=== PATIENT | female | born 1980 | race American Indian/Alaskan Native ===

== ENCOUNTER 2021-12-14 11:17 | Emergency (ER) | payer MEDICAID ==
[2021-12-14 11:57] VITALS: BP 109/74
[2021-12-14 13:02] LABS: Hematocrit 36.4 % (30.3-42.9); Hemoglobin 11.6 gm/dl (10.1-14.3); Mean Corpuscular HGB Conc 32 % (30-34); Mean Corpuscular Volume 77 fl (79-97); Platelet Count 207 K/mm3 (140-440); Red Blood Count 4.73 M/mm3 (3.65-5.03); Red Cell Distribution Width 18.9 % (13.2-15.2)
[2021-12-14 13:15] LABS: Alanine Aminotransferase 12 units/L (7-56); Albumin 4.1 g/dL (3.9-5); BUN/Creatinine Ratio 17; Blood Urea Nitrogen 10 mg/dL (7-17); Calcium 9.2 mg/dL (8.4-10.2); Hemolysis Index 3
[2021-12-14] MEDS ORDERED: MORPHINE 4 MG/1 ML INJ IM ONE (14:30)
[2021-12-14] MEDS ORDERED: ONDANSETRON 4 MG ODT TAB PO ONE (14:30)
--- NOTE | 2021-12-14 14:56 | Ultrasound Report ---
ULTRASOUND OBSTETRIC REASON FOR EXAM: preg, vag bleeding TECHNIQUE: Transabdominal and transvaginal ultrasound was performed to evaluate a first trimester pre gnancy. COMPARISON: None available. FINDINGS: The uterus is enlarged, measuring 15.3 x 8.6 x 5.4 cm. There is a large cystic structure, measuring 7 .2 cm. This is concerning for abnormal gestational sac, located within the lower uterine segment. No yolk sac or pole is identified. Neither ovary is visualized. No significant mass in either adnexa. No significant free fluid fluid id entified. IMPRESSION: Large irregular empty gestational sac without pole or yolk sac. Findings are consistent with pr egnancy failure. Signer Name: Jakob Silverman MD Signed: 12/14/2021 2:52 PM Workstation Name: [id number]
[2021-12-14 16:24] LABS: Color,Urine Amber (Yellow)
[2021-12-14 16:28] LABS: Bacteria,Urine 1+ /HPF (Negative); Mucus,Urine FEW /HPF
[2021-12-14 16:38] LABS: RBC,Urine > 182.0 /HPF (0.0-6.0)
[2021-12-14] MEDS ORDERED: oxyCODONE /ACETAMINOPHEN 5-325MG TAB PO ONE (16:53)
[2021-12-14] MEDS ORDERED: KETOROLAC 10 MG TAB PO ONE (16:53)
--- NOTE | 2021-12-14 17:28 | Emergency Department Report ---
ED HPI - General Chief complaint: Vaginal Bleeding Stated complaint: 12WKS /BLEEDING/PAIN Time Seen by Provider: 12/14/21 13:19 Source: patient, family Mode of arrival: Ambulatory Limitations: No Limitations - History of Present Illness Initial comments: 41-year-old black female with no past medical history presents to the emergency department for evaluation of vaginal bleeding and abdominal pain. She states that symptoms started last night but Significantly worse today. She states that pain is 10 out of 10 and is a persistent crampy type pain. She denies fever, nausea, vomiting. Patient is who is about 12 weeks gestation. She states that she has not had her first OB appointment yet MD Complaint: abdominal pain, vaginal bleeding -: Sudden, days(s) (1) Location: abdomen Radiation: back Severity: severe Severity scale (0 -10): 10 Quality: cramping, aching Consistency: constant Associated symptoms: vaginal bleeding, abdominal pain. denies: nausea/vomiting, vaginal discharge, dysuria, headache, vision changes, malaise, dysparuenia, rash, seizure, shortness of breath, syncope, weakness Vaginal bleeding: heavy, clots :: Yes Number of weeks : 12 OB History - Current : no complications OB History - Previous Pregnancies: no complications Pre- care: none - Related Data Previous Rx's Medication Instructions Recorded Last Taken Type Acetaminophen/Codeine [Tylenol 1 tab PO Q6H PRN #12 tab 12/14/21 Unknown Rx /Codeine # 3 tab] Ketorolac [Toradol] 10 mg PO Q6H PRN #12 tab 12/14/21 Unknown Rx cephALEXin [Keflex] 500 mg PO BID #14 cap 12/14/21 Unknown Rx Allergies Allergy/AdvReac Type Severity Reaction Status Date / Time No Known Allergies Allergy Unverified 12/14/21 11:57 ED Review of Systems ROS: Stated complaint: 12WKS /BLEEDING/PAIN Other details as noted in HPI Comment: All other systems reviewed and negative Constitutional: denies: chills, fever Respiratory: denies: shortness of breath, wheezing Cardiovascular: denies: chest pain, palpitations Gastrointestinal: abdominal pain. denies: nausea, vomiting, diarrhea, hematemesis, melena, hematochezia Genitourinary: denies: urgency, dysuria Musculoskeletal: back pain Neurological: denies: headache ED Past Medical Hx - Past Medical History Previous Medical History?: Yes - Medications Home Medications: Home Medications Medication Instructions Recorded Confirmed Last Taken Type Acetaminophen/Codeine [Tylenol 1 tab PO Q6H PRN #12 tab 12/14/21 Unknown Rx /Codeine # 3 tab] Ketorolac [Toradol] 10 mg PO Q6H PRN #12 tab 12/14/21 Unknown Rx cephALEXin [Keflex] 500 mg PO BID #14 cap 12/14/21 Unknown Rx ED Physical Exam - General Limitations: No Limitations General appearance: alert, in no apparent distress - Head Head exam: Present: atraumatic, normocephalic - Eye Eye exam: Present: normal appearance. Absent: conjunctival injection, periorbital swelling, periorbital tenderness - ENT ENT exam: Present: normal exam - Neck Neck exam: Present: normal inspection, full ROM. Absent: tenderness, lymphadenopathy - Respiratory Respiratory exam: Present: normal lung sounds bilaterally. Absent: respiratory distress, wheezes, rales, rhonchi, stridor, chest wall tenderness - Cardiovascular Cardiovascular Exam: Present: regular rate, normal heart sounds - GI/Abdominal GI/Abdominal exam: Present: soft, tenderness (Bilateral lower), guarding, normal bowel sounds. Absent: distended, rebound, rigid - Extremities Exam Extremities exam: Present: normal inspection, normal capillary refill - Back Exam Back exam: Present: normal inspection. Absent: CVA tenderness (R), CVA tenderness (L) - Neurological Exam Neurological exam: Present: alert, oriented X3, normal gait - Psychiatric Psychiatric exam: Present: normal affect, normal mood - Skin Skin exam: Present: warm, dry, intact, normal color ED Course Vital Signs 12/14/21 11:55 Temperature 98.5 F Pulse Rate 71 Respiratory 18 Rate Blood Pressure 109/74 [Left] O2 Sat by Pulse 99 Oximetry ED Medical Decision Making - Lab Data Result diagrams: 12/14/21 12:11 12/14/21 12:11 - Radiology Data Radiology results: report reviewed, image reviewed ultrasound: FINDINGS: The uterus is enlarged, measuring 15.3 x 8.6 x 5.4 cm. There is a large cystic structure, measuring 7.2 cm. This is concerning for abnormal gestational sac, located within the l ower uterine segment. No yolk sac or pole is identified. Neither ovary is visualized. No significant mass in either adnexa. No significant free fluid fluid identified. IMPRESSION: Large irregular empty gestational sac without pole or yolk sac. Findings are consistent with failure. - Medical Decision Making 41-year-old black female with no past medical history presents to the emergency department for evaluation of vaginal bleeding and abdominal pain. She states that symptoms started last night but Significantly worse today. She states that pain is 10 out of 10 and is a persistent crampy type pain. She denies fever, nausea, vomiting. Patient is who is about 12 weeks gestation. She states that she has not had her first OB appointment yet Ultrasound positive for failed . H&H within normal limit and patient noted to be A positive. Patient be discharged home with pain control and antibiotics for urinary tract infection and advised to follow-up with [facility] for further evaluation and management. She is advised to return to the emergency department if she develops dizziness, weakness, or worsening vaginal bleeding. She verbalizes understanding of and agreement with plan of care. Critical care attestation.: If time is entered above; I have spent that time in minutes in the direct care of this critically ill patient, excluding procedure time. ED Disposition Clinical Impression: Vaginal bleeding before 22 weeks gestation, Miscarriage UTI (urinary tract infection) Qualifiers: Urinary tract infection type: acute cystitis Hematuria presence: with hematuria Qualified Code(s): N30.01 - Acute cystitis with hematuria Disposition: HOME / SELF CARE / HOMELESS Is pt being admited?: No Does the pt Need Aspirin: No Condition: Stable Instructions: Miscarriage, [id number], Vaginal Bleeding During , First Trimester, Managing Loss Additional Instructions: Take medications as prescribed. Follow-up with [facility] for further evaluation and management. Return to the emergency department immediately if you start to develop weakness dizziness or excessive vaginal bleeding. Prescriptions: cephALEXin [Keflex] 500 mg PO BID #14 cap Ketorolac [Toradol] 10 mg PO Q6H PRN #12 tab PRN Reason: Pain Acetaminophen/Codeine [Tylenol /Codeine # 3 tab] 1 tab PO Q6H PRN #12 tab PRN Reason: Pain , Severe (7-10) Referrals: [facility] [Provider Group] - 3-5 Days [facility] [Provider Group] - 3-5 Days [facility] [Provider Group] - 3-5 Days Forms: Work/School Release Form(ED) Time of Disposition: 17:29
== END 2021-12-14 18:06 | disposition home or self-care (01) ==
LOC: ED 11:17
DX: O20.8 Other hemorrhage in early pregnancy (principal); O23.41 Unspecified infection of urinary tract in pregnancy, first trimester; N39.0 Urinary tract infection, site not specified; Z3A.12 12 weeks gestation of pregnancy
CPT/HCPCS: 36415; 76801; 76817; 80053; 81001; 84702; 85027; 86900; 86901; 87086; 96372; 99284; J2270; J3490; Q0162